=== PATIENT | female | born 1990 | race Caucasian/White ===

== ENCOUNTER 2016-12-04 05:48 | Inpatient (IN) | payer OTHER ==
[2013-10-05 12:51] VITALS: BMI 26.5
[2016-12-04 06:33] LABS: BASO % 0.5 % (0.0-2.0); EOS # 0.1 K/uL (0.0-0.7); HEMOGLOBIN 9.9 g/dL (11.0-16.0); LYMPH # 1.6 K/uL (1.0-4.3); LYMPH % 17.2 % (20.0-40.0); MEAN CORPUSCULAR HEMOGLOBIN 24.6 pg (27.0-31.0); MEAN CORPUSCULAR HGB CONC 31.9 g/dL (33.0-37.0); MEAN PLATELET VOLUME 8.2 fL (7.2-11.7); MONO # 0.7 K/uL (0.0-0.8); MONO % 7.9 % (0.0-10.0); NEUT # 6.8 K/uL (1.8-7.0); NEUT % 73.4 % (50.0-75.0); RBC 4.04 Mil/uL (3.80-5.20); RED CELL DISTRIBUTION WIDTH 14.7 % (11.5-14.5)
[2016-12-04 06:40] LABS: WHITE BLOOD COUNT 9.3 K/uL (4.8-10.8)
[2016-12-04 06:45] LABS: ALBUMIN 3.3 g/dL (3.5-5.0)
[2016-12-04 06:48] LABS: GFR AFRICAN-AMERICAN > 60; GFR NON-AFRICAN AMERICAN > 60
[2016-12-04 06:49] LABS: ALB/GLOB RATIO 0.9 (1.0-2.1); ALT/SGPT 27 U/L (9-52); AST/SGOT 25 U/L (14-36); BLOOD UREA NITROGEN 9 mg/dL (7-17); CALCIUM 8.5 mg/dl (8.6-10.4)
[2016-12-04 06:56] LABS: SQUAMOUS EPITHIAL 22 /hpf (0-5); URINE BACTERIA FEW (<OCC); URINE BILIRUBIN NEGATIVE (NEGATIVE); URINE CLARITY Hazy (Clear); URINE COLOR Yellow (YELLOW); URINE GLUCOSE (UA) NORMAL (Normal); URINE NITRATE NEGATIVE (NEGATIVE); URINE PROTEIN NEGATIVE (NEGATIVE); URINE UROBILINOGEN NORMAL mg/dL (0.2-1.0)
[2016-12-04 06:58] LABS: URINE BLOOD 1+ (NEGATIVE); URINE LEUKOCYTE ESTERASE 2+ Leu/uL (Negative)
[2016-12-04] MEDS ORDERED: cefOXitin IV 2 gm in Dextrose 2 GM/50 ML BAG IVPB ONE ×2 (07:01→07:26)
[2016-12-04] MEDS ORDERED: Sodium Citrate/Citric Acid 15 ml Sol ONE (07:01)
[2016-12-04] MEDS ORDERED: Sodium Citrate/Citric Acid 15 ml Sol PO ONE (07:26)
--- NOTE | 2016-12-04 07:58 | OBADHP ---
Datetime: 12/04/2016 07:33 Admit Comment, IP Provider: 26 y.o. , LMP 03/04/16, ERIKA 12/09/16, EGA 39w 2d, confirmed by sono 05/30/2016 at 12w 3d, previous C/S for elective repeat with BTL. (+) AFM;l Denies LOF, VB. (+) occ c tx x 1 week. care: [facility], denies issue. Reviewe of chart reveals anemia; patient not taking iron supplementaiton. GBS (+) P Ob: 2013, C/S, female, 7lb 11 oz, [facility] - relateve CPD; arrest of dilatation at 9 cm. No complication. 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 No h/o STIs, or abnormal Pap; cysts or fibroids PMH: anemia PSH: C/S; D_C x 2 NKDA Food allergy: cheeries, peaches, apples = numb lips Soc Hx: denies tobacco, illicit drug or EtOH use. With FOB x 5 years; 07/2016. Fam Hx: Mother alive 53 - gastritis. Father alive 53 - DM. No known fam h/o cancer P.E.: as above. Small, in NAD. Awake, alert, oriented to time, person and place. Pleasant and coop erative. with child in waiting room; mother present in room Assessment: 26 yo P1021, 39w 2d previous C/section for elective repeat with BTL. R/B/C of repeat a bdominal surgery and possible failure of sterilization procedure were reviewed. Patient expressed an understanding and agrees; no questions answered. Consents signed, dated, witnessed and placed in [facility]. Category 1 tracing. Patient last ate 2130 hours. Clinically stable Plan: 1) Admit 2) NPO 3) Admission labs 4) continuous EFM 5) Sprague 6) ABdominal prep 7) Notify anesthesia 8) Notify peds 9) Mefoxin, diamond expert to O.R. 10) patient diamond expert to O.R. Pelvic Type - PN: Adequate Extremities - PN: Normal Abdomen - PN: Normal Back - PN: Normal Breast - PN: Not Done Lungs - PN: Normal Heart - PN: Normal Thyroid - PN: Not Done Neurologic - PN: Normal HEENT - PN: Normal General - PN: Normal Presentation-Admit: Vertex FHR - Baseline A Provider: 135 Membranes, Provider: Intact Contraction Comments Provider: 4-5 minutes Comments, ACOG Physical Exam: Skin: warm, dry, intact Abdomen: gravid, soft, fundal height 36 cm All other systems reviewed and are negative Gestation - Est Wks by US: 39w 2d IP Hx Assessment: The History has been Reviewed and is Current Vital Signs Provider: Reviewed; Within Normal Limits IP Chief Complaint: Scheduled Section NICHD Variability Prov Fetus A: Moderate 6-25bpm NICHD Accel Fetus A IP Provider: [id number] FHR Category Provider Fetus A: Category I NICHD Decel Fetus A IP Provider: None Dilatation, Provider: 2 Effacement, Provider: 30 Station, Provider: -3 Genitourinary Exam: Normal DTRs - PN: Not Done EGA AdmitDate IP: 39.2 IP Adm Impression: Term, intrauterine ; No Active Labor IP Admit Plan: Admit to unit; Initiate Section protocol
[2016-12-04] MEDS ORDERED: Morphine 1 mg/ml preservative-free Inj(Duramorph) ONE (08:22)
--- NOTE | 2016-12-04 10:46 | PCM.SURG1 ---
Surgeon's Initial Post Op Note - Surgeon's Notes Surgeon: Gerri Mckoy MD Seconds Inspector: Daniel Turner MD; Second Seconds Inspector: Chantel Louie DO (PGY-1) Type of Anesthesia: Spinal Anesthesia Administered By: Jayla Pre-Operative Diagnosis: 39 weeks 2 days, Previous C/S, Anemia, Desires permanent sterilization; GBS positive. Operative Findings: Live female infant, weight 7lb; Apgars 9/9, CRYS position. Normal uterus. normal ovaries and fallopian tubes, bilaterally. Mild adhesion involving omentum to posterior aspect of uterus. Post-Operative Diagnosis: Same; Status post repeat C/S and BTL Operation Performed: repeat LTCS and modified Vandana BTL Specimen/Specimens Removed: segment of fallopian tubes, right and left Estimated Blood Loss: EBL {In ML}: 600 (500 mL clear urine; 1700 mL LR) Blood Products Given: N/A Drains Used: No Drains Post-Op Condition: Good Date of Surgery/Procedure: 12/04/16 Time of Surgery/Procedure: 10:10
[2016-12-04] MEDS: Lactated Ringer's 1,000 ML IV SCH ×2 (15:13→22:43)
[2016-12-04 17:15] LABS: HEMOGLOBIN 8.5 g/dL (11.0-16.0); MEAN CORPUSCULAR HEMOGLOBIN 24.3 pg (27.0-31.0); MEAN CORPUSCULAR HGB CONC 31.6 g/dL (33.0-37.0); RBC 3.5 Mil/uL (3.80-5.20); RED CELL DISTRIBUTION WIDTH 14.9 % (11.5-14.5)
[2016-12-04] MEDS: Simethicone 80 mg Chewtab PO SCH ×2 (17:44→22:41)
--- NOTE | 2016-12-05 08:25 | OBPPN ---
Datetime: 12/05/2016 08:22 PP Pain Prov: Within normal limits PP Nausea Prov: Denies PP Flatus Prov: Yes PP Breasts Prov: Normal PP Heart Prov: Normal PP Lungs Prov: Normal PP Abdomen/Uterus Prov: Normal PP Lochia Prov: Normal PP Vulva/Perineum Prov: Normal PP CVA Tenderness Prov: Normal PP Extremities Prov: Normal PP C/S Incision Prov: Normal PP Progress Prov: Normal PP Comments Phys Exam Prov: Abd: Soft, NT, BS- present. UT- firm Incision: clean and dry PP Impression Prov: Normal progression PP Plan Prov: Continue present management PP Progress Note Prov: S/P Repeat Section, POD #1 Clinically Stable. Plan: Continue care.
[2016-12-05 09:17] VITALS: O2SAT 99
[2016-12-05 09:24] LABS: BASO % 0.4 % (0.0-2.0); EOS # 0.1 K/uL (0.0-0.7); EOS % 0.6 % (0.0-4.0); HEMOGLOBIN 8.5 g/dL (11.0-16.0); LYMPH % 9.8 % (20.0-40.0); MEAN CELL VOLUME 76.7 fL (81.0-99.0); MEAN CORPUSCULAR HEMOGLOBIN 24.8 pg (27.0-31.0); MEAN CORPUSCULAR HGB CONC 32.4 g/dL (33.0-37.0); MONO # 0.8 K/uL (0.0-0.8); MONO % 7.8 % (0.0-10.0); NEUT % 81.4 % (50.0-75.0); PLATELET COUNT 379 K/uL (130-400); RBC 3.41 Mil/uL (3.80-5.20); RED CELL DISTRIBUTION WIDTH 14.6 % (11.5-14.5)
[2016-12-05 09:26] LABS: WHITE BLOOD COUNT 9.8 K/uL (4.8-10.8)
[2016-12-05] MEDS ORDERED: Oxycodone/Acetaminophen 5/325 mg Tab PO PRN ×2 (10:37)
[2016-12-05 11:19] LABS: ANISOCYTOSIS SLIGHT; EOSINOPHIL 1 % (0-4); LYMPHOCYTE 11 % (20-40); MONOCYTE 9 % (0-10); NEUTROPHIL 79 % (50-75); PLATELET ESTIMATE NORMAL (NORMAL); POIKILOCYTOSIS SLIGHT; TOTAL CELLS COUNTED 100
[2016-12-05 11:20] LABS: HYPOCHROMIC SLIGHT; TARGET CELLS SLIGHT
[2016-12-05] MEDS: Prenatal Multivit/Folic Acid/Iron Tab PO SCH (12:12)
[2016-12-05] MEDS: Simethicone 80 mg Chewtab PO SCH ×4 (12:12→22:30)
[2016-12-05 16:05] VITALS: PULSE 87
--- NOTE | 2016-12-06 07:40 | OBPPN ---
Datetime: 12/06/2016 07:36 PP Pain Prov: Within normal limits PP Nausea Prov: Denies PP Flatus Prov: Yes PP BM Prov: No PP Abdomen/Uterus Prov: Normal PP Lochia Prov: Normal PP CVA Tenderness Prov: Normal PP Extremities Prov: Normal PP C/S Incision Prov: Normal PP Progress Prov: Normal PP Impression Prov: Normal progression PP Plan Prov: Continue present management PP Progress Note Prov: S-patient denies any complaints.reports that her pain is well controlled.Sean es nausea, vomiting, headache, chest pain,s hortness of breath, numbness or tingling in hands and fee t O-VSS afebrile Fundus firm and below umbilicus Incision clean, dry and intact Extremities no calf tenderness A/P Patient s/p csection pod 2 doing well -continue routine PP care -anticipate discharge tomorrow Vital Signs Provider PP: Reviewed; Within Normal Limits
[2016-12-06] MEDS: Simethicone 80 mg Chewtab PO SCH ×4 (09:11→21:33)
[2016-12-06] MEDS: Prenatal Multivit/Folic Acid/Iron Tab PO SCH (09:11)
[2016-12-07 08:18] VITALS: BP 94/65; RESP 18; TEMP 97.1
[2016-12-07] MEDS: Prenatal Multivit/Folic Acid/Iron Tab PO SCH (09:53)
[2016-12-07] MEDS: Simethicone 80 mg Chewtab PO SCH ×2 (09:54→13:33)
--- NOTE | 2016-12-07 13:41 | OBPPN ---
Datetime: 12/07/2016 13:31 PP Pain Prov: Within normal limits PP Nausea Prov: Denies PP Flatus Prov: Yes PP BM Prov: Yes PP Breasts Prov: Normal PP Heart Prov: Normal PP Lungs Prov: Normal PP Abdomen/Uterus Prov: Normal PP Lochia Prov: Normal PP Vulva/Perineum Prov: Normal PP CVA Tenderness Prov: Not Done PP Extremities Prov: Normal PP C/S Incision Prov: Normal PP Progress Prov: Normal PP Comments Phys Exam Prov: Skin: warm, dry, in tact Breasts: engorged bilaterally. No cracked nipples Abdomen: Soft (+) BS. Non distended. Incision with subcuticular closure - clean dry and intact; st ivy trips still in situ. Mild lochia rubra Extremities: no calf tenderness All other systems reviewed and are negative. PP Impression Prov: Normal progression PP Plan Prov: Discharge PP Progress Note Prov: Patient seen and evaluated approximatel 0805 hours: received in bed, room 459 , in good spirits - ready to go home. exclusively; c/o painful breasts. (+) ambulating, voiding without difficulty; (+) flatus; (+) BM. P.E. As above. WD in NAD. Awake, alert, oriented to time, person and place. Pleasant and cooperti ve. - POD#1 H/H 8.5/26.1 Assessment: POD#3, 26 yo P2, S/P C/S#2 with BTL. Afebrile, vital signs stable. Anemia - stable. B reast engorgement - warm compresses to breast; pump breasts. Patient is clinically stable. Plan: 1) Discharge home 2) See full discharge instructions Vital Signs Provider PP: Reviewed; Within Normal Limits
--- NOTE | 2016-12-07 13:43 | OBDCSUM ---
Datetime: 12/07/2016 13:40 Discharged to, Provider: Home Discharged to, Provider: Home Follow up at, Provider: [facility] Follow up at, Provider: njrafaela Disch Instr Activity: Normal activity; May be up to bathroom; May be up for meals; May Shower Discharge Diagnosis, Provider: Term Delivered Discharge Time: 12/07/2016 14:00 Follow up in weeks, Provider: 12/11/16 Follow up in weeks, Provider: 12-11-16 Disch Referrals: None Disch Referrals: None Contraception discussed, Prov: No Disch Activity Restrictions: No exercising; No sexual activity; Nothing in vagina - [place], elam sandhya, douche Disch Activity Restrictions: No lifting; Minimize stair-climbing; No sexual activity; Nothing in vag jo - [place], tampons, douche Discharge Diagnosis Prov Other: Status post repeat section Status post bilateral tubal ligation Anemia
== END 2016-12-07 14:40 | disposition home or self-care (01) | DRG 371 ==
LOC: C.4D 05:48 → C.4M 12:27
PROVIDERS: ADMIT Obstetrics & Gynecology; ATTEND Obstetrics & Gynecology
PROC: 10D00Z1 Extraction of Products of Conception, Low, Open Approach (ICD-10-PCS; principal; 2016-12-04)
PROC: 0UL70ZZ Occlusion of Bilateral Fallopian Tubes, Open Approach (ICD-10-PCS; 2016-12-04)
DX: O99.013 Anemia complicating pregnancy, third trimester (principal); D64.9 Anemia, unspecified; O99.824 Streptococcus B carrier state complicating childbirth; Z3A.39 39 weeks gestation of pregnancy; Z37.0 Single live birth; O34.219 Maternal care for unspecified type scar from previous cesarean delivery; Z30.2 Encounter for sterilization